=== PATIENT | female | born 1970 | race Caucasian/White ===

== ENCOUNTER 2021-02-09 22:37 | Emergency (ER) | payer OTHER ==
[~2021-02-09] VITALS: Ht 152.4 cm; Wt 67.1 kg
[2021-02-09 22:49] VITALS: BP 135/68
--- NOTE | 2021-02-09 22:52 | NUR ---
TO LOBBY A/W BED AMBULATORY
--- NOTE | 2021-02-09 23:19 | NUR ---
PATIENT 51 Y.O. BIB SELF FOR C/O SHORTNESS OF BREATH STATING "WHEN IM SLEEPING AND I GET DIZZY WHEN I WAKE UP" X 1 YEAR "BUT IT HAS GOTTEN WORSE THE LAST 2 MONTHS." PER PATIENT "I WENT TO THE DENTIST AND THEY SAID I GRIND MY TEETH AND THAT CAUSES ME TO USE ALL MY ENERGY, MAKING IT HARD TO BREATHE." PATIENT ALSO STATES "I ALSO HAVE LEFT SIDE PAIN" X 1 YEAR. A & O X4. BILATERAL LUNGS CLEAR THROUGHOUT, NO NOTED RESPIRATORY DISTRESS, PATIENT ABLE TO COMMUNICATE WITHOUT DIFFICULTY, O2 100% ON R.A. ABDOMEN IS FLAT, SOFT, TENDER TO TOUCH ON LLQ, BOWEL SOUNDS ACTIVE X 4. SKIN IS WARM, DRY AND PINK. BED IS LOCKED AND IN LOWEST POSITION, BED RAIL X 1. MED HX: DENIES ALLERGIES: LAVERNE
--- NOTE | 2021-02-09 23:28 | NUR ---
ZOË NEELY AT BEDSIDE PERFORMING ASSESSMENT.
[2021-02-09] MEDS ORDERED: LORazepam 2 MG/ML VIAL IM ONE (23:30)
[2021-02-09] MEDS ORDERED: ALPR0.5T2 PO (23:31)
[2021-02-09 23:53] VITALS: BP 135/68
--- NOTE | 2021-02-09 23:53 | NUR ---
Patient discharged with v/s stable. Written and verbal after care instructions given and explained. Patient alert, oriented and verbalized understanding of instructions. Ambulatory with steady gait. All questions addressed prior to discharge. ID band removed. Patient advised to follow up with PMD. Rx of ALPRAZOLAM given. Patient educated on indication of medication including possible reaction and side effects. Opportunity to ask questions provided and answered.
--- NOTE | 2021-02-10 00:01 | NUR ---
SPOKE WITH GALEN FROM [facility] WHO WILL BE PICKING PATIENT UP AT ER ENTRANCE. ETA 20-45 MIN. PATIENT MADE AWARE AND WILL BE PRIVATE PAY.
== END 2021-02-09 23:53 | disposition home or self-care (01) ==
LOC: MED 22:37
DX: F41.1 Generalized anxiety disorder (principal); R03.0 Elevated blood-pressure reading, without diagnosis of hypertension; K08.89 Other specified disorders of teeth and supporting structures
CPT/HCPCS: 96372; 99283; J2060

== ENCOUNTER 2021-10-17 17:30 | Emergency (ER) | payer OTHER ==
[~2021-10-17] VITALS: Ht 149.9 cm; Wt 59.4 kg
[~2021-10-17 17:30] MED LIST: ALPR0.5T2 PO
[2021-10-17 17:35] VITALS: BP 122/60
[2021-10-17] MEDS ORDERED: DOCO1CRE TP (18:20)
[2021-10-17 18:26] VITALS: BP 122/60
--- NOTE | 2021-10-17 18:26 | NUR ---
NO NURSING INTERVENTIONS IMPLEMENTED. Patient discharged with v/s stable. Written and verbal after care instructions given and explained. Patient alert, oriented and verbalized understanding of instructions. Ambulatory with steady gait. All questions addressed prior to discharge. ID band removed. Patient advised to follow up with PMD. Rx of ABREVA given. Patient educated on indication of medication including possible reaction and side effects. Opportunity to ask questions provided and answered.
== END 2021-10-17 18:26 | disposition home or self-care (01) ==
LOC: MED 17:30
DX: B00.1 Herpesviral vesicular dermatitis (principal); Z79.899 Other long term (current) drug therapy
CPT/HCPCS: 99282

== ENCOUNTER 2021-11-27 18:29 | Emergency (ER) | payer OTHER ==
[~2021-11-27] VITALS: Ht 152.4 cm; Wt 69.4 kg
[~2021-11-27 18:29] MED LIST changes: +DOCO1CRE TP
[2021-11-27 18:51] VITALS: BP 148/89
[2021-11-27] MEDS ORDERED: DOCO1CRE TP (19:38)
--- NOTE | 2021-11-27 19:43 | NUR ---
PT SEEN AND EVALUATED BY ZAYRA BARNETT. PT CLEARED FOR DISCHARGE BY ZAYRA BARNETT. ALL DISCHARGE INSTRUCTIONS EXPLAINED BY ZAYRA BARNETT. RX OF ASHLIE PROVIDED.
== END 2021-11-27 19:41 | disposition home or self-care (01) ==
LOC: MED 18:29
DX: B00.1 Herpesviral vesicular dermatitis (principal); R03.0 Elevated blood-pressure reading, without diagnosis of hypertension; Z79.899 Other long term (current) drug therapy
CPT/HCPCS: 99281; 99282

== ENCOUNTER 2023-12-05 10:13 | Emergency (ER) | payer OTHER ==
[~2023-12-05] VITALS: Ht 144.8 cm; Wt 69.0 kg
[2023-12-05 10:19] VITALS: BP 121/58; PULSE 78; RESP 20; TEMP 98.4; O2SAT 100
[2023-12-05] MEDS ORDERED: PROPARACAINE 0.5% OPTH 15 ML BTL OP ONE (10:50)
[2023-12-05] MEDS ORDERED: FLUORESCEIN OPTH STRIP 1 MG OP ONE (10:50)
[2023-12-05] MEDS ORDERED: PRED5DRO4 RIGHT EYE (11:33)
[2023-12-05] MEDS ORDERED: POLY15SO74 OP (11:33)
[2023-12-05 11:43] VITALS: BP 121/58; PULSE 78; RESP 20; TEMP 98.4; O2SAT 100
== END 2023-12-05 11:43 | disposition home or self-care (01) ==
LOC: MED 10:13
DX: H11.151 Pinguecula, right eye (principal); Z79.899 Other long term (current) drug therapy
CPT/HCPCS: 99283